=== PATIENT | male | born 2000 | race American Indian/Alaskan Native ===

== ENCOUNTER 2022-08-07 07:29 | Day surgery (SDC) | payer MEDICAID ==
[~2022-08-07] VITALS: Ht 177.8 cm; Wt 128.3 kg
[2022-08-07] MEDS ORDERED: normal saline 1000ml 1,000 ML IV PRN (07:50)
[2022-08-07 08:01] VITALS: BP 149/94
[2022-08-07] MEDS ORDERED: POLY17PO20 PO (08:07)
[2022-08-07] MEDS ORDERED: ONDA4TAB12 PO (08:07)
[2022-08-07] MEDS ORDERED: SUCR1TAB PO (08:07)
[2022-08-07] MEDS ORDERED: HYDR-3973 (08:07)
[2022-08-07] MEDS ORDERED: Probiotic (08:07)
[2022-08-07] MEDS ORDERED: CHOL500050 (08:07)
[2022-08-07] MEDS ORDERED: OMEP20CA16 PO (08:07)
[2022-08-07] MEDS ORDERED: SENN-263 PO (08:07)
[2022-08-07] MEDS ORDERED: heparin sodium, porcine/PF 100unit/ml 5ML syringe ONE (08:40)
[2022-08-07] MEDS ORDERED: midazolam 1 mg/ML 2ml injection ONE ×2 (08:40→10:37)
[2022-08-07] MEDS ORDERED: LIDOcaine 1% 30ml preserv. free vial ONE (08:41)
[2022-08-07] MEDS ORDERED: fentaNYL/PF 50MCG/1 ML 2ML syringe ONE (08:41)
[2022-08-07 08:43] LABS: BASOPHILS # (AUTO) 0.1 X10'3 (0-0.2); BASOPHILS % (AUTO) 0.8 % (0-1); EOSINOPHILS # (AUTO) 0.1 X10'3 (0-0.9); EOSINOPHILS % (AUTO) 1.3 % (0-6); HEMATOCRIT 42.5 % (42.0-52.0); HEMOGLOBIN 14.3 g/dl (14.0-17.9); LYMPHOCYTES # (AUTO) 2.4 X10'3 (1.1-4.8); LYMPHOCYTES % (AUTO) 23.8 % (21-51); MEAN CORPUSCULAR HEMOGLOBIN 26.6 PG (27.0-31.0); MEAN CORPUSCULAR HGB CONC 33.7 g/dL (33.0-36.5); MEAN CORPUSCULAR VOLUME 79.1 FL (78-98); MEAN PLATELET VOLUME 8.8 FL (7.4-10.4); MONOCYTES # (AUTO) 0.9 X10'3 (0-0.9); MONOCYTES % (AUTO) 8.4 % (2-12); NEUTROPHILS # (AUTO) 6.7 X10'3 (1.8-7.7); NEUTROPHILS % (AUTO) 65.7 % (42-75); PLATELET COUNT 363 X10'3 (140-440); RED BLOOD COUNT 5.38 X10'6 (4.70-6.10); RED CELL DISTRIBUTION WIDTH 13.7 % (11.5-14.5); WHITE BLOOD COUNT 10.2 X10'3 (4.5-11.0)
[2022-08-07] MEDS ORDERED: normal saline 1000ml 1,000 ML IV SCH (09:50)
[2022-08-07 11:01] VITALS: BP 129/94
[2022-08-07 11:15] VITALS: BP 148/98
[2022-08-07 11:30] VITALS: BP 152/94
[2022-08-07 11:45] VITALS: BP 157/92
== END 2022-08-07 12:00 | disposition home or self-care (01) ==
LOC: SSTAY O 07:29
PROVIDERS: ATTEND Radiology Diagnostic Radiology
DX: C15.9 Malignant neoplasm of esophagus, unspecified (principal); Z98.890 Other specified postprocedural states; J45.909 Unspecified asthma, uncomplicated; Z80.0 Family history of malignant neoplasm of digestive organs
CPT/HCPCS: 36415; 36561; 76937; 77001; 85025; 99152; 99153; C1769; C1788; J1642; J2250; J3010; J3490; J7030; A4620; C1894

== ENCOUNTER 2022-08-15 08:36 | Day surgery (SDC) | payer MEDICAID ==
[~2022-08-15] VITALS: Ht 177.8 cm; Wt 12.5 kg
[~2022-08-15 08:36] MED LIST: CHOL500050; HYDR-3973; LIDOcaine 1% 30ml preserv. free vial SQ STA; OMEP20CA16 PO; ONDA4TAB12 PO; POLY17PO20 PO; Probiotic; SENN-263 PO; SUCR1TAB PO
[2022-08-15 08:47] VITALS: BP 135/86
[2022-08-15] MEDS ORDERED: chemotherapy (08:52)
[2022-08-15] MEDS ORDERED: albumin 25% 100mL bottle x 1 IV PRN (09:00)
[2022-08-15 09:05] VITALS: BP 135/87
[2022-08-15 09:15] VITALS: BP 117/66
[2022-08-15 09:30] VITALS: BP 131/56
[2022-08-15 09:45] VITALS: BP 130/62
[2022-08-15 10:00] VITALS: BP 138/81
== END 2022-08-15 10:00 | disposition home or self-care (01) ==
LOC: SSTAY O 08:36
PROVIDERS: ATTEND Radiology Vascular & Interventional Radiology
DX: C16.0 Malignant neoplasm of cardia (principal); R18.0 Malignant ascites; J45.909 Unspecified asthma, uncomplicated; Z98.890 Other specified postprocedural states; Z72.89 Other problems related to lifestyle; Z79.899 Other long term (current) drug therapy
CPT/HCPCS: 49083; J3490; A6258

== ENCOUNTER 2022-12-22 06:42 | Day surgery (SDC) | payer MEDICAID ==
[~2022-12-22] VITALS: Ht 175.3 cm; Wt 99.5 kg
[~2022-12-22 06:42] MED LIST changes: -CHOL500050; +DICY20TA17 PO; +DOCU100C40 PO; -LIDOcaine 1% 30ml preserv. free vial SQ STA; +MORP-92 PO; -POLY17PO20 PO; +PROC10TA97 PO; -Probiotic; +chemotherapy
[2022-12-22 07:30] VITALS: BP 141/98; PULSE 125; RESP 16; TEMP 98.2; O2SAT 97
[2022-12-22] MEDS ORDERED: ondansetron/PF 4mg/2ml inj IV ONE (07:50)
[2022-12-22] MEDS ORDERED: ketorolac trometh. 30mg/ml inj. IV ONE (07:50)
[2022-12-22 08:00] VITALS: RESP 16; O2SAT 97
[2022-12-22 08:35] VITALS: BP 137/95; PULSE 116; RESP 16; O2SAT 96
[2022-12-22] MEDS ORDERED: HYDROmorphone 1 mg/ml syringe IM ONE (08:40)
[2022-12-22 08:50] VITALS: BP 146/96; PULSE 111; RESP 16; O2SAT 96
[2022-12-22 09:05] VITALS: BP 137/88; PULSE 105; RESP 16; O2SAT 96
[2022-12-22 09:20] VITALS: BP 117/82; PULSE 104; RESP 16; O2SAT 97
== END 2022-12-22 09:30 | disposition home or self-care (01) ==
LOC: SSTAY O 06:42
PROVIDERS: ATTEND Radiology Vascular & Interventional Radiology
DX: R18.8 Other ascites (principal); R14.0 Abdominal distension (gaseous); J45.909 Unspecified asthma, uncomplicated; Z98.890 Other specified postprocedural states; Z79.899 Other long term (current) drug therapy; Z85.01 Personal history of malignant neoplasm of esophagus
CPT/HCPCS: 49083; C1729; J1170; J1885; J3490; A6258

== ENCOUNTER 2023-01-12 07:03 | Day surgery (SDC) | payer MEDICAID ==
[~2023-01-12] VITALS: Ht 175.3 cm; Wt 218.0 kg
[2023-01-12] VITALS (10 sets, daily range): BP systolic 118–130; BP diastolic 61–89; PULSE 104–145; RESP 16–18; TEMP 99.1; O2SAT 95–97
[~2023-01-12 07:03] MED LIST changes: +BUPIVAcaine/PF 2.5 mg/ml (0.25%) 30ml vial ONE
[2023-01-12] MEDS ORDERED: HYDR4TAB45 PO (07:25)
[2023-01-12] MEDS ORDERED: FENT1PAT12 TOP (07:25)
[2023-01-12] MEDS ORDERED: albumin 25% 100mL bottle x 1 IV PRN (07:35)
[2023-01-12] MEDS ORDERED: proCHLORperazine 10mg tablet PO ONE (09:15)
== END 2023-01-12 10:20 | disposition home or self-care (01) ==
LOC: SSTAY O 07:03
PROVIDERS: ATTEND Radiology Vascular & Interventional Radiology
DX: R18.8 Other ascites (principal); R14.0 Abdominal distension (gaseous); J45.909 Unspecified asthma, uncomplicated; Z98.890 Other specified postprocedural states; Z79.899 Other long term (current) drug therapy; Z85.01 Personal history of malignant neoplasm of esophagus
CPT/HCPCS: 49083; C1729; J3490; P9047; Q0164; A6258; A6449

== ENCOUNTER 2023-01-15 07:44 | Day surgery (SDC) | payer MEDICAID ==
[~2023-01-15] VITALS: Ht 175.3 cm; Wt 87.2 kg
[~2023-01-15 07:44] MED LIST changes: -BUPIVAcaine/PF 2.5 mg/ml (0.25%) 30ml vial ONE; +FENT1PAT12 TOP; -HYDR-3973; +HYDR4TAB45 PO; -MORP-92 PO; +proCHLORperazine 10mg tablet PO ONE
[2023-01-15] MEDS ORDERED: proCHLORperazine 10mg tablet PO ONE (08:00)
[2023-01-15 08:02] VITALS: BP 123/69; PULSE 132; RESP 16; TEMP 98; O2SAT 96
[2023-01-15] MEDS ORDERED: albumin 25% 100mL bottle x 1 IV PRN (08:10)
[2023-01-15] MEDS ORDERED: HYDROmorphone 2mg tablet PO ONE (08:15)
[2023-01-15 09:55] VITALS: BP 118/76; PULSE 108; RESP 16; O2SAT 96
[2023-01-15 10:15] VITALS: BP 116/76; PULSE 70; RESP 16; O2SAT 95
[2023-01-15] MEDS ORDERED: ringers solution, lacted 1,000 ML IV SCH (10:20)
[2023-01-15 10:30] VITALS: BP 121/83; PULSE 112; RESP 16; O2SAT 95
[2023-01-15 10:45] VITALS: BP 128/85; PULSE 109; RESP 16; O2SAT 95
== END 2023-01-15 13:30 | disposition home or self-care (01) ==
LOC: SSTAY O 07:44
PROVIDERS: ATTEND Radiology Diagnostic Radiology
DX: R18.8 Other ascites (principal); R14.0 Abdominal distension (gaseous); J45.909 Unspecified asthma, uncomplicated; Z79.899 Other long term (current) drug therapy; Z72.89 Other problems related to lifestyle; Z98.890 Other specified postprocedural states; Z85.01 Personal history of malignant neoplasm of esophagus
CPT/HCPCS: 49083; C1729; J3490; J7120; Q0164; A6258